=== PATIENT | male | born 1960 | race Two or more races ===

== ENCOUNTER 2018-03-06 04:17 | Emergency (ER) | payer MEDICAID ==
--- NOTE | 2018-03-06 04:25 | EDPHY ---
H & P Stated Complaint: epigastric pain since 2199 Source: Patient - Personal History Current Tetanus/Diphtheria Vaccine: Yes - Medical/Surgical History Hx Asthma: Yes Hx Chronic Respiratory Disease: No Hx Diabetes: Yes Hx Cardiac Disease: No Hx Renal Disease: No Hx Cirrhosis: No Hx Alcoholism: No Hx HIV/AIDS: No Hx Splenectomy or Spleen Trauma: No Other PMH: DM, HTN, asthma,. back sx - Social History Smoking Status: Former smoker Time Seen by Provider: 03/06/18 04:24 HPI/ROS: HPI CHIEF COMPLAINT: Abdominal pain HISTORY OF PRESENT ILLNESS: Patient is a 58-year-old male, he has a history of diabetes, hypertension, presents emergency room with upper abdominal pain since around 10:00 p.m. Last night. States has been rather excruciating throughout the night. The main pain is in the right upper quadrant. Sharp stabbing rather constant. With associated nausea. He did have 1 episode of nonbilious nonbloody vomiting. Denies diarrhea. Denies chills. Denies fever. Denies lower abdominal pain main complaint of pain it 8/10 right upper quadrant. No back pain, denies chest pain or shortness of breath. Past Medical History: Hypertension, diabetes Past Surgical History: Vagotomy Social History: Denies daily use of drugs alcohol tobacco. Family History: Noncontributory ROS REVIEW OF SYSTEMS: A comprehensive 10 point review of systems is otherwise negative aside from elements mentioned in the history of present illness. Exam Constitutional appears well nontoxic triage nursing summary reviewed, vital signs reviewed, awake/alert. Eyes normal conjunctivae and sclera, EOMI, PERRLA. HENT normal inspection, atraumatic, moist mucus membranes, no epistaxis, neck supple/ no meningismus, no raccoon eyes. Respiratory clear to auscultation bilaterally, normal breath sounds, no respiratory distress, no wheezing. Cardiovascular rate normal, regular rhythm, no murmur, no edema, distal pulses normal. Gastrointestinal mild tender palpation epigastric and right upper quadrant, reproducible on exam, no peritoneal signs, no rebound, no guarding, normal bowel sounds, no distension, no pulsatile mass. Genitourinary no CVA tenderness. Musculoskeletal no midline vertebral tenderness, full range of motion, no calf swelling, no tenderness of extremities, no meningismus, good pulses, neurovascularly intact. Skin pink, warm, & dry, no rash, skin atraumatic. Neurologic awake, alert and oriented x 3, AAOx3, moves all 4 extremities equally, motor intact, sensory intact, CN II-XII intact, normal cerebellar, normal vision, normal speech. Psychiatric normal mood/affect. Heme/Lymph/Immune no lymphadenopathy. Differential diagnosis includes but is not limited to and in no particular order : Bowel obstruction, appendicitis, gallbladder disease, diverticulitis, colitis , enteritis, perforated viscus, gastritis, GERD, esophagitis, urinary tract infection, pyelonephritis, kidney stones Medical Decision Making: Plan for this patient IV establishment IV fluid bolus , IV Dilaudid for pain control, IV Zofran for nausea, abdominal labs, ultrasound to rule out gallbladder disease. Re-evaluation: 0537: Ultrasound of the gallbladder called to me by Dr. Hermosillo. This shows CBD dilatation a 7to8 mm. Gallbladder wall is slightly thickened at 3.5 mm. Additionally when the patient is in the decubitus position there is a gallstone seen in the gallbladder neck. It is unclear if this is a mobile or not. EKG interpretation by me on record in [employer] system. Impression time of EKG 5:23 a.m., sinus rhythm rate of 84, no ST elevation no ST depression no significant T-wave abnormalities. Nonischemic EKG. 0559: Spoke with Dr. Jaimes, general surgery. Recommends patient gets admitted to Medicine. Dr. Davis will see and evaluate this patient for possible gallbladder disease. Plan will be for admission to the hospital for further evaluation of his right upper quadrant abdominal pain that is most likely due to gallbladder disease with gallstones. Surgery to see and evaluate. Will admit to Medicine due to comorbidities. NPO. IV Invanz has been ordered. Patient has been updated and agrees for plan. Spoke with Dr. Haynes agrees to admit. (Reji Melendez) Constitutional: Initial Vital Signs Temperature (C) 37.1 C 03/06/18 04:18 Heart Rate 94 03/06/18 04:18 Respiratory Rate 20 03/06/18 04:18 Blood Pressure 109/81 H 03/06/18 04:18 O2 Sat (%) 93 03/06/18 04:18 O2 Delivery Mode Room Air O2 (L/minute) 2 Allergies/Adverse Reactions: Penicillins Allergy (Verified 03/06/18 04:24) Sulfa (Sulfonamide Antibiotics) Allergy (Verified 03/06/18 04:24) Home Medications: Medication Instructions Recorded Lisinopril/Hydrochlorothiazide 03/06/18 Metformin HCl 03/06/18 Medical Decision Making Other Provider: [facility] patient has been seen in the emergency department by Dr. Davis, general surgery. The patient is currently pain-free. He is without complaint. He is not interested having gallbladder surgery today. He prefer to have this done as an outpatient. Patient is tolerating p.o.. Plan will be to discharge with outpatient follow-up with Dr. Davis for elective cholecystectomy. (Gómez Valverde ) - Data Points Laboratory Results: Laboratory Results 03/06/18 04:44 03/06/18 04:44 Medications Given: Discontinued Medications Ertapenem (Invanz) 1 gm IM EDNOW ONE PRN Reason: Protocol Stop: 03/06/18 06:00 Last Admin: 03/06/18 06:20 Dose: 1 gm Hydromorphone HCl (Dilaudid) 0.5 mg IVP EDNOW ONE Stop: 03/06/18 04:37 Last Admin: 03/06/18 04:57 Dose: 0.5 mg Sodium Chloride (Ns) 1,000 mls @ 0 mls/hr IV EDNOW ONE; Wide Open PRN Reason: Protocol Stop: 03/06/18 04:37 Last Admin: 03/06/18 04:56 Dose: 1,000 mls Ondansetron HCl (Zofran) 4 mg IVP EDNOW ONE Stop: 03/06/18 04:37 Last Admin: 03/06/18 04:57 Dose: 4 mg Departure - Departure Disposition: [facility] Inpatient Acute Clinical Impression: Biliary colic Condition: Good Instructions: Biliary Colic (ED), Low Fat Diet (ED) Additional Instructions: Follow up with Dr. Davis in his office in the next 2 weeks for further evaluation. Return to the emergency department for uncontrolled pain, uncontrolled nausea vomiting, fevers or chills, or any other concerns. Referrals: Caitlin Dickey MD [Primary Care Provider] - As per Instructions Ace Davis MD [Medical Doctor] - As per Instructions
[2018-03-06] MEDS ORDERED: ONDANSETRON 4 MG/2 ML VIAL IVP ONE (04:36)
[2018-03-06] MEDS ORDERED: NS 1,000 ML IV ONE (04:36)
[2018-03-06] MEDS ORDERED: HYDROmorphONE/DILAUDID 2 MG/ML INJ IVP ONE (04:36)
[2018-03-06 05:08] LABS: INR 0.92 (0.83-1.16); PROTIME(PATIENT) 12.6 SEC (12.0-15.0)
--- NOTE | 2018-03-06 05:24 | CPEKG ---
Heart Rate: 84 RR Interval: 714 P-R Interval: 196 QRSD Interval: 92 QT Interval: 372 QTC Interval: 440 P Columbia: 56 QRS Columbia: 23 T Wave Columbia: 59 EKG Severity - OTHERWISE NORMAL ECG - EKG Impression: SINUS RHYTHM EKG Impression: LOW VOLTAGE IN FRONTAL LEADS Electronically Signed By: Alireza Chahal 07-Mar-2018 19:47:17
[2018-03-06 05:28] LABS: PLATELET COUNT 256 10^3/uL (150-400)
[2018-03-06] MEDS ORDERED: ERTAPENEM 1 GM VIAL IM ONE (05:59)
[2018-03-06] MEDS ORDERED: PROMETHAZINE HCL 25 MG/ML INJ IVP PRN (07:22)
[2018-03-06] MEDS ORDERED: HYDROCODONE/APAP 5/325 TAB PO PRN (07:22)
[2018-03-06] MEDS ORDERED: ACETAMINOPHEN 325 MG TAB PO PRN (07:22)
[2018-03-06] MEDS ORDERED: ONDANSETRON 4 MG/2 ML VIAL IVP PRN (07:22)
[2018-03-06] MEDS ORDERED: HYDROmorphONE/DILAUDID 1 MG/ML INJ IVP PRN (07:22)
[2018-03-06] MEDS ORDERED: NS 1,000 ML IV SCH (07:30)
[2018-03-06 08:00] VITALS: BP 108/58
--- NOTE | 2018-03-06 08:12 | GCON ---
[f rep st] CONSULTATION DATE OF CONSULTATION: 03/06/2018 REASON FOR ADMISSION: Right upper quadrant pain. REQUESTING PHYSICIAN: Reji Melendez MD . HISTORY OF PRESENT ILLNESS: 58-year-old male presented to the emergency room earlier this morning with right upper quadrant abdominal pain. He reports one quasi similar episode many months prior. He denies associated fevers or chills. He denies current nausea or vomiting. He denies history of dark urine , acholic stools, or jaundice. He did have a remote history of a vagotomy many years ago. His ED workup including right upper quadrant ultrasonography showed cholelithiasis. Patient was given IV analgesics. Upon my visit, the patient reports that he is currently pain free. He is currently without nausea. He is currently hungry. 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 PAST MEDICAL HISTORY: Diabetes, hypertension, asthma. PAST SURGICAL HISTORY: Open vagotomy, lumbar diskectomy, left pinky finger fracture repair. ALLERGIES: Penicillin, sulfa. MEDICATIONS: Lisinopril/hydrochlorothiazide, metformin. SOCIAL HISTORY: No alcohol. No tobacco. 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 REVIEW OF SYSTEMS: Unremarkable 12-point review. PHYSICAL EXAMINATION: Temperature 37, blood pressure 110/80, heart rate 94, respiration 20. The patient is alert, appropriate, comfortable at present time. Anicteric. No cervical or supraclavicular lymphadenopathy. Heart regular without murmurs. Lungs clear bilaterally. Abdomen is soft, nondistended. Well-healed midline laparotomy without hernias. No right upper quadrant tenderness. No rebound. No guarding. No masses. Extremities without edema. Neurologically alert and appropriate. Skin without rashes. LABORATORY DATA: White count 9.9, hemoglobin 12, platelets 260. INR 1.0. Electrolytes: Sodium 141, potassium 3.4, chloride 95, CO2 30, BUN 20, creatinine 0.9, glucose 164, alkaline phosphatase 92, AST 53, total bilirubin 0.6. Urinalysis unremarkable. Right upper quadrant ultrasound images were directly reviewed on PACS. Cholelithiasis with minimal gallbladder wall thickening without free fluid, common bile duct 7 mm. IMPRESSION: Biliary colic. Symptoms are currently resolved. The patient strongly desires to avoid surgery at this time given his upcoming work arrangements. We discussed the pathophysiology of gallbladder disease and recommendations to proceed with elective laparoscopic cholecystectomy as he is currently pain free. This can safely be recommended in the outpatient setting. We did discuss the possibility for recurrent attacks and need for sooner intervention if warranted. Care plan was discussed with the hospitalist and the emergency room physician documentation spec. Will plan to followup in office. /[id number]/MODL MTDD
== END 2018-03-06 08:25 | disposition home or self-care (01) ==
LOC: UNDOADMOB 06:12
DX: K80.50 Calculus of bile duct without cholangitis or cholecystitis without obstruction (principal)
CPT/HCPCS: 96374; J1170; J1335; J2405

== ENCOUNTER 2018-03-23 11:40 | Day surgery (SDC) | payer MEDICAID ==
[2018-03-23] MEDS ORDERED: LR 1,000 ML IV ONE (12:03)
--- NOTE | 2018-03-23 13:02 | PDHPUP ---
History & Physical Update H&P update statement: This history and physical update is based on an assessment of the patient which was completed after admission or registration (within 24 hours), but prior to the surgery/procedure. H&P update: H&P reviewed & patient examined, no change in patient's condition since H&P completed
--- NOTE | 2018-03-23 13:03 | POSTOPPROG ---
<Meeta Syed - Last Filed: 03/23/18 13:02> Post Op Note Date of Operation: 03/23/18 Surgeon: Ace Davis Molding Machine Operator: Meeta Syed PA-C Pre-op Diagnosis: Cholelithiasis Post-op Diagnosis: Cholethiasis Procedure: Laparoscopic cholecystectomy Inf/Abcess present in the surg proc area at time of surgery?: No EBL: Minimal Complications: no immediate <Ace Davis Filed: 03/23/18 15:26> Post Op Note Date of Operation: 03/23/18 Surgeon: Ace Davis Anesthesiologist: Jagjit Lo Post-op Diagnosis: Cholelithiasis Complications: no immediate Specimen(s): gallbladder
[2018-03-23] MEDS ORDERED: BUPIVACAINE 0.5% 30 ML SDV ONE (13:28)
[2018-03-23] MEDS ORDERED: EPINEPHrine 1 MG/ML INJ ONE (13:42)
--- NOTE | 2018-03-23 14:15 | PDANEPAE ---
ANE History of Present Illness cholelithiasis, here for lap siddharth ANE Past Medical History - Cardiovascular History Hx Hypertension: Yes Hx Arrhythmias: No Hx Chest Pain: No Hx Coronary Artery / Peripheral Vascular Disease: No Hx CHF / Valvular Disease: No Hx Palpitations: No - Pulmonary History Hx COPD: No Hx Asthma/Reactive Airway Disease: No Hx Recent Upper Respiratory Infection: No Hx Oxygen in Use at Home: No Hx Sleep Apnea: No Sleep Apnea Screening Result - Last Documented: Negative Pulmonary History Comment: HX OF MILD PERSISTENT ASTHMA-ADVAIR USE SEVERAL MONTHS AGO. - Neurologic History Hx Cerebrovascular Accident: No Hx Seizures: No Hx Dementia: No Neurologic History Comment: HX OF H/A -CHRONIC SMALL VESSEL ISCHEMIA. - Endocrine History Hx Diabetes: Yes Endocrine History Comment: NIDDM-AIC 7.2 - Renal History Hx Renal Disorders: No - Liver History Hx Hepatic Disorders: No - Neurological & Psychiatric Hx Hx Neurological and Psychiatric Disorders: No - Cancer History Hx Cancer: No - Congenital Disorder History Hx Congenital Disorders: No - GI History Hx Gastrointestinal Disorders: Yes Gastrointestinal History Comment: ACID REFLUX -ON RX - Other Health History Other Health History: GALLBLADDER CALCULUS;. GLAUCOMA-ACUTE ANGLE LASER SX; - Chronic Pain History Chronic Pain: No - Surgical History Prior Surgeries: CATARACT EXTRACTION W/IOL-BILAT;. LUMBAR DISCECTOMY L5;. VAGOTOMY 1982 ANE Review of Systems Review of Systems: - Exercise capacity METS (RN): 4 METS ANE Patient History - Allergies Allergies/Adverse Reactions: Penicillins Allergy (Verified 03/22/18 15:11) Rash Sulfa (Sulfonamide Antibiotics) Allergy (Verified 03/22/18 15:11) Rash - Home Medications Home Medications: Lisinopril/Hydrochlorothiazide 03/06/18 [Last Taken 03/23/18] Metformin HCl 03/06/18 [Last Taken 03/23/18] Amlodipine Besylate 03/22/18 [Last Taken 03/23/18] Atorvastatin Calcium 03/22/18 [Last Taken 03/23/18] Carvedilol 03/22/18 [Last Taken 03/23/18] Tradjenta 03/22/18 [Last Taken 03/23/18] - NPO status NPO Status: no food or drink >8 hours NPO Since - Liquids (Date): 03/23/18 NPO Since - Liquids (Time): 10:00 NPO Since - Solids (Date): 03/23/18 NPO Since - Solids (Time): 00:00 - Anes Hx Anes Hx: no prior problems - Smoking Hx Smoking Status: Former smoker - Alcohol Use Alcohol Use: None - Family Anes Hx Family Anes Hx: none ANE Labs/Vital Signs - Vital Signs Blood Pressure: 130/75 Heart Rate: 84 Respiratory Rate: 14 O2 Sat (%): 98 Height: 167.64 cm Weight: 95.254 kg ANE Physical Exam - Airway Neck exam: decreased ROM Mallampati Score: Class 1 Mouth exam: normal dental/mouth exam - Pulmonary Pulmonary: no respiratory distress, clear to auscultation - Cardiovascular Cardiovascular: regular rate and rhythym, no murmur, rub, or gallop - ASA Status ASA Status: III ANE Anesthesia Plan Anesthesia Plan: general endotracheal anesthesia
[2018-03-23] MEDS ORDERED: MIDAZOLAM 2 MG/2 ML VIAL IVP ONE (14:16)
[2018-03-23] MEDS ORDERED: MIDAZOLAM 2 MG/2 ML VIAL ONE (14:17)
[2018-03-23] MEDS ORDERED: fentaNYL 100 MCG/2 ML INJ ONE ×3 (14:21→16:03)
[2018-03-23] MEDS ORDERED: PROPOFOL 200 MG/20 ML VIAL ONE ×2 (14:21→15:24)
[2018-03-23] MEDS ORDERED: LIDOCAINE 2% 5 ML SDV ONE (14:23)
[2018-03-23] MEDS ORDERED: ROCURONIUM 50 MG/5 ML VIAL ONE (14:24)
[2018-03-23] MEDS ORDERED: NALOXONE HCL 0.4 MG/ML INJ IVP PRN (15:42)
[2018-03-23] MEDS ORDERED: ALBUTEROL 3 ML DEYVIAL IH PRN (15:42)
[2018-03-23] MEDS ORDERED: HYDROCODONE/APAP 5/325 TAB PO PRN (15:42)
[2018-03-23] MEDS ORDERED: PROMETHAZINE HCL 25 MG/ML INJ IVP PRN (15:42)
[2018-03-23] MEDS ORDERED: ONDANSETRON 4 MG/2 ML VIAL IVP PRN (15:42)
[2018-03-23] MEDS ORDERED: ACETAMINOPHEN 500 MG TAB PO PRN (15:42)
[2018-03-23] MEDS ORDERED: oxyCODONE IR 5 MG TAB PO PRN (15:42)
--- NOTE | 2018-03-23 15:42 | POSTANESTH ---
Post Anesthetic Evaluation Cardiovascular Status: Normal, Stable, Similar to Pre-Op Cond Respiratory Status: Normal, Stable, Similar to Pre-op Cond. Level of Consciousness/Mental Status: Moderately Sleepy Pain Control: Adequate, Prn Tx Ordered Nausea/Vomiting Control: Adequate, Prn Tx Ordered Complications Possibly Related to Anesthesia: None Noted
[2018-03-23] MEDS: fentaNYL 100 MCG/2 ML INJ IVP PRN ×2 (16:04→16:11)
[2018-03-23] MEDS ORDERED: HYDROCODONE/APAP 5/325 TAB ONE (16:30)
--- NOTE | 2018-03-23 16:35 | GOP ---
[f rep st] OPERATIVE REPORT DATE OF OPERATION: 03/23/2018 SURGEON: Ace Davis MD COVERING MACHINE OPERATOR: Meeta Syed PA-C. ANESTHESIA: General. ANESTHESIOLOGIST: Al Jones MD. PREOPERATIVE DIAGNOSIS: Biliary colic. POSTOPERATIVE DIAGNOSIS: Biliary colic. PROCEDURE PERFORMED: Laparoscopic cholecystectomy. FINDINGS: See below. INDICATIONS: 58-year-old male seen in the emergency room a few weeks prior with an episode of a biliary colic. He is taken to the operating today for an elective laparoscopic cholecystectomy. Risks and benefits were explained of bleeding, infection, open conversion, bile duct injury, retained stone, potential for postoperative ERCP. All questions were answered. He desires to proceed. A medical surgical tech is standard and necessary and customary for the safe performance of this procedure. DESCRIPTION OF PROCEDURE: After general anesthesia was induced, the abdomen was preinjected with 0.5% Marcaine with epinephrine. A vertical infraumbilical cutdown was created. A 10 mm trocar was placed under direct visualization. Three additional 5 mm upper abdominal ports were inserted. Multiple midline omental adhesions were lysed from the patient's prior vagotomy procedure many years prior. The gallbladder was then retracted cephalad. Extensive omental adhesions were present from prior surgical intervention as well. These were all bluntly lysed away, disclosing the fundus of the gallbladder. The cystic duct and artery were circumferentially encompassed, confirming the critical view of safety. The duct was small in caliber. The duct was multiply clipped and divided with the ultrasonic dissector as was the artery. The gallbladder was peeled from the liver bed fossa and brought through the umbilical port site intact using EndoCatch pouch. Satisfactory hemostasis was assured. Trocars were removed under direct visualization. The infraumbilical midline fascia was closed with a running Vicryl suture. The wounds were closed with Monocryl suture followed by Dermabond. The patient was taken to recovery uneventfully. /[id number]/MODL MTDD
[2018-03-23 17:50] VITALS: BP 128/73
== END 2018-03-23 17:50 | disposition home or self-care (01) ==
LOC: FSGY 11:40
PROVIDERS: ATTEND Surgery
PROC: 0FT44ZZ Resection of Gallbladder, Percutaneous Endoscopic Approach (ICD-10-PCS; principal; 2018-03-23 13:00)
DX: K80.20 Calculus of gallbladder without cholecystitis without obstruction (principal); I10 Essential (primary) hypertension; J45.30 Mild persistent asthma, uncomplicated; E78.00 Pure hypercholesterolemia, unspecified; E11.9 Type 2 diabetes mellitus without complications; K21.9 Gastro-esophageal reflux disease without esophagitis; H40.9 Unspecified glaucoma; Z79.82 Long term (current) use of aspirin; Z88.0 Allergy status to penicillin; Z88.2 Allergy status to sulfonamides
CPT/HCPCS: J0171; J2250; J2704; J3010

== ENCOUNTER 2018-03-26 04:05 | Inpatient (IN) | payer MEDICAID ==
[2018-03-26] MEDS ORDERED: NS 1,000 ML IV ONE ×3 (04:10→06:11)
--- NOTE | 2018-03-26 04:18 | EDPHY ---
H & P Time Seen by Provider: 03/26/18 04:12 HPI/ROS: HPI CHIEF COMPLAINT: Chest pain and shortness of breath. HISTORY OF PRESENT ILLNESS: Patient is a 58-year-old male, who I am familiar with his eye initially admitted him for gallbladder disease he had an elective cholecystectomy on 03/23, he presents emergency room as he woke up suddenly at 3 :00 a.m. With shortness of breath and chest pain. He states the main thing that woke him up was some shortness of breath he developed some sharp chest pain left side of his chest. It is been constant since 3:00 a.m. It is now 4: 15 a.m.. EMS arrived to evaluate him and he had oxygen saturations in the 86% on RA, and noted to be tachycardic in the 140s. He is brought to the emergency room he did require 4 L nasal cannula which brought his oxygen level up to 91%. He now presents emergency ring appearing ill, tachycardic, and hypoxic. He is complaining of shortness of breath and chest pain. Past Medical History: Hypertension, asthma, diabetes Past Surgical History: Gallbladder disease, with recent cholecystectomy Social History: Denies drugs alcohol tobacco. Family History: Noncontributory ROS REVIEW OF SYSTEMS: A comprehensive 10 point review of systems is otherwise negative aside from elements mentioned in the history of present illness. Exam Constitutional appears unwell, tachycardic and hypoxic upon arrival triage nursing summary reviewed, vital signs reviewed, awake/alert. Eyes normal conjunctivae and sclera, EOMI, PERRLA. HENT normal inspection, atraumatic, moist mucus membranes, no epistaxis, neck supple/ no meningismus, no raccoon eyes. Respiratory clear to auscultation bilaterally, normal breath sounds, no respiratory distress, no wheezing. Cardiovascular tachycardia, regular rhythm, no murmur, no edema, distal pulses normal. Gastrointestinal soft, non-tender, no rebound, no guarding, normal bowel sounds, no distension, no pulsatile mass. Genitourinary no CVA tenderness. Musculoskeletal no midline vertebral tenderness, full range of motion, no calf swelling, no tenderness of extremities, no meningismus, good pulses, neurovascularly intact. Skin clammy, no rash, skin atraumatic. Neurologic awake, alert and oriented x 3, AAOx3, moves all 4 extremities equally, motor intact, sensory intact, CN II-XII intact, normal cerebellar, normal vision, normal speech. Psychiatric normal mood/affect. Heme/Lymph/Immune no lymphadenopathy. Differential Diagnosis: Includes but is not limited to in a particular order sepsis, bacteremia, pneumonia, pneumothorax, pulmonary embolism Medical Decision Making: Plan for this patient who is noted be tachycardic and hypoxic upon arrival after surgery will plan for aggressive resuscitation be placed on supplemental oxygen full cardiac cath lab radiology technologist obtain EKG to rule out acute coronary syndrome the comma chest x-ray, IV fluids, blood cultures, check lactic acid, low threshold for CT angiogram of the chest rule out PE. Re-evaluation: EKG interpretation by me on record in [employer] system. Impression: Time of EKG 4:15 a.m., sinus tachycardia waited 141 T-wave abnormality lead 1 in aVL with some slight ST depression no ST elevation. ED x-ray chest one view: Poor inspiratory effort. Cardiomegaly present. Otherwise appreciate acute pneumothorax or infiltrate. D-dimer noted to be positive. Creatinine is okay. Will proceed with CT angiogram of the chest. Rule out PE. 5:05 a.m. Patient back from CT, heart rate 123, blood pressure 99/58. Pulse ox 91% on [address] scan angiogram of the chest with IV contrast for pulmonary embolism in the setting of D-dimer that is positive in recent surgery he does not have any evidence of acute pulmonary embolism this was called to me by Dr. Anthony Goodson. There is right lower lobe atelectasis, and elevated right hemidiaphragm, most likely compressive atelectasis, additionally pleural effusion This pleural effusion atelectasis and elevated right hemidiaphragm may be the cause of his hypoxia. Clinically here in the emergency room he appears dry and on exam. Received a 2nd L fluid. I have ordered him IV Levaquin. Blood cultures have already been sent. His temperature is now 37.8. I do have concern of possible developing pneumonia post surgery. Patient be admitted to the hospitalist service for tachycardia, hypoxia, possible right lower lobe pneumonia. 0529: Spoke with Dr. Husain he agrees to admit the patient. The patient is getting a 2nd L fluid. IV Levaquin has been ordered. Will treat for possible early right lower lobe pneumonia compressive atelectasis, pleural effusion, obesity hypoventilation syndrome and possibly hypoventilation due to narcotics. 0532: Patient re-evaluated this time he is having chills and rigors in ER. I have ordered him 800 mg of Motrin. Blood cultures are pending. Lactic acid pending. 2nd L fluid. 0618: Hospitalist at bedside evaluate the patient. The patient is complaining of worsening abdominal pain. Additionally it is noted he is having rigors and chills, additionally noted is temperature is increasing to 39 degrees. Given increasing complaint of abdominal pain will proceed with CT scan abdomen pelvis with IV contrast to further delineate for acute febrile illness with worsening abdominal pain with recent gallbladder surgery. Plan will be for 3rd L fluid. Plan will be for admission for sepsis. Lactic acid was noted to be at 2. 0648: CT ABD Pelvis: With IV contrast, called to me by Dr. Anthony Goodson, shows a few dots of air in the anterior gallbladder fossa. Otherwise no significant acute inflammatory process seen on the CT. Source: Patient, EMS - Medical/Surgical History Hx Asthma: Yes Hx Chronic Respiratory Disease: No Hx Diabetes: Yes Hx Cardiac Disease: No Hx Renal Disease: No Hx Cirrhosis: No Hx Alcoholism: No Hx HIV/AIDS: No Hx Splenectomy or Spleen Trauma: No Other PMH: DM, HTN, asthma,. back sx - Social History Smoking Status: Former smoker Constitutional: Initial Vital Signs O2 Sat (%) 91 L 03/26/18 04:10 O2 Delivery Mode Room Air O2 (L/minute) 4 Allergies/Adverse Reactions: Penicillins Allergy (Verified 03/26/18 04:15) Rash Sulfa (Sulfonamide Antibiotics) Allergy (Verified 03/26/18 04:15) Rash Home Medications: Medication Instructions Recorded metFORMIN HCL [Glucophage 1000 mg] 2,000 mg PO HS #0 03/06/18 Atorvastatin Calcium [Lipitor 20 20 mg PO DAILY #0 03/22/18 mg (*)] Carvedilol [Coreg (*)] 12.5 mg PO BID #0 03/22/18 Linagliptin [Tradjenta] 5 mg PO DAILY #0 03/22/18 amLODIPine BESYLATE [Norvasc 10 mg 5 - 10 mg PO DAILY #0 03/22/18 (*)] Cyanocobalamin [Vitamin B12 (*)] 1,000 mcg PO Q3D 03/26/18 Hydrocodone/Acetaminophen [[place] 1 - 2 tab PO Q4-6PRN PRN 03/26/18 5/325 (*)] Ibuprofen [Motrin (*)] 200 - 800 mg PO TID PRN 03/26/18 Omeprazole 20 mg PO HS 03/26/18 Medical Decision Making - Data Points Laboratory Results: Laboratory Results 03/26/18 04:08 03/26/18 04:08 Microbiology Results: MICROBIOLOGY 03/26/18 04:27 Blood Blood Culture - Preliminary Escherichia Coli 03/26/18 04:27 Blood Blood Panel (PCR) - Final Escherichia Coli 03/26/18 04:19 Blood Blood Culture - Preliminary Gram Neg Mehdi Lactose Staff 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/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 Medications Given: Acetaminophen (Tylenol) 650 mg PO Q4HRS PRN PRN Reason: Pain, Mild/Fever, Can Take PO Stop: 09/22/18 05:31 Last Admin: 03/27/18 18:10 Dose: 650 mg Atorvastatin Calcium (Lipitor) 20 mg PO DAILY KAELYN Stop: 09/23/18 08:59 Last Admin: 03/27/18 11:50 Dose: 20 mg Ertapenem 1 gm/ Sodium (Chloride) 100 mls @ 200 mls/hr IV DAILY KAELYN PRN Reason: Protocol Stop: 04/25/18 09:29 Last Admin: 03/27/18 11:50 Dose: 100 mls Norepinephrine 4 mg/ Dextrose 500 mls @ 0 mls/hr IV CONT KAELYN; Per Protocol PRN Reason: Protocol Stop: 09/22/18 18:29 Last Admin: 03/26/18 18:34 Dose: 500 mls Insulin Human Lispro (Humalog Lispro) 0 unit SC TIDMEAL KAELYN PRN Reason: Protocol Stop: 09/22/18 07:59 Last Admin: 03/27/18 17:32 Dose: 2 units Ondansetron HCl (Zofran) 4 mg IVP Q4HRS PRN PRN Reason: Nausea/Vomiting, Can't Take PO Stop: 09/22/18 05:31 Last Admin: 03/26/18 20:14 Dose: 4 mg Pantoprazole Sodium (Protonix) 40 mg PO HS KAELYN Stop: 09/23/18 20:59 Last Admin: 03/27/18 20:34 Dose: 40 mg Discontinued Medications Acetaminophen (Tylenol) 650 mg PO EDNOW ONE Stop: 03/26/18 07:00 Last Admin: 03/26/18 07:11 Dose: 650 mg Enoxaparin Sodium (Lovenox) 100 mg SC BID KAELYN Stop: 09/23/18 09:59 Last Admin: 03/27/18 11:50 Dose: 100 mg Furosemide (Lasix Injection) 20 mg IVP ONCE ONE Stop: 03/27/18 12:16 Last Admin: 03/27/18 15:58 Dose: Not Given Furosemide (Lasix Injection) 20 mg IVP ONCE ONE Stop: 03/27/18 16:01 Last Admin: 03/27/18 16:39 Dose: Not Given Sodium Chloride (Ns) 1,000 mls @ 0 mls/hr IV EDNOW ONE; Wide Open PRN Reason: Protocol Stop: 03/26/18 04:11 Last Admin: 03/26/18 04:25 Dose: 1,000 mls Levofloxacin/Dextrose (Levaquin 750 Mg (Premix)) 150 mls @ 100 mls/hr IV EDNOW ONE PRN Reason: Protocol Stop: 03/26/18 06:45 Last Admin: 03/26/18 05:30 Dose: 150 mls Sodium Chloride (Ns) 1,000 mls @ 0 mls/hr IV ONCE ONE PRN Reason: Wide Open Stop: 03/26/18 05:19 Last Admin: 03/26/18 05:45 Dose: 1,000 mls Sodium Chloride (Ns) 1,000 mls @ 0 mls/hr IV ONCE ONE PRN Reason: Wide Open Stop: 03/26/18 06:12 Last Admin: 03/26/18 06:30 Dose: 1,000 mls Sodium Chloride (Ns) 500 mls @ 1,500 mls/hr IV ONCE ONE Stop: 03/26/18 09:36 Last Admin: 03/26/18 09:30 Dose: 500 mls Norepinephrine 4 mg/ Sodium (Chloride) 500 mls @ 0 mls/hr IV CONT KAELYN; Per Protocol PRN Reason: Protocol Stop: 09/22/18 10:29 Last Admin: 03/26/18 12:06 Dose: 500 mls Sodium Chloride (Ns) 500 mls @ 0 mls/hr IV ONCE ONE PRN Reason: As Directed Stop: 03/26/18 11:01 Last Admin: 03/26/18 10:10 Dose: 500 mls Vasopressin 25 unit/ Sodium (Chloride) 251.25 mls @ 24 mls/hr IV CONT KAELYN Stop: 09/22/18 14:29 Last Admin: 03/26/18 14:27 Dose: 251.25 mls Amiodarone HCl (Amiodarone Hcl) 100 mls @ 600 mls/hr IV ONCE ONE Stop: 03/27/18 10:09 Last Admin: 03/27/18 12:26 Dose: Not Given Amiodarone HCl (Amiodarone Hcl) 200 mls @ 33.333 mls/hr IV ONCE ONE PRN Reason: Protocol Stop: 03/27/18 15:59 Last Admin: 03/27/18 12:26 Dose: Not Given Amiodarone HCl 540 mg/ (Dextrose) 300 mls @ 16.667 mls/hr IV ONCE ONE PRN Reason: Protocol Stop: 03/28/18 03:59 Last Admin: 03/27/18 14:26 Dose: Not Given Potassium Chloride (Potassium Cl 10 Meq (Premix)) 50 mls @ 100 mls/hr IV Q30M [facility] Stop: 03/27/18 15:44 Last Admin: 03/27/18 16:38 Dose: 50 mls Ibuprofen (Motrin) 800 mg PO EDNOW ONE Stop: 03/26/18 05:33 Last Admin: 03/26/18 05:39 Dose: 800 mg Potassium Chloride (Klor-Con) 60 meq PO ONCE ONE Stop: 03/27/18 05:03 Last Admin: 03/27/18 05:17 Dose: 60 meq Potassium Chloride (Klor-Con) 20 meq PO ONCE ONE PRN Reason: Protocol Stop: 03/27/18 19:37 Last Admin: 03/27/18 20:34 Dose: 20 meq Departure - Departure Disposition: [facility] Acute Clinical Impression: Tachycardia, Hypoxia Pneumonia Qualifiers: Pneumonia type: due to unspecified organism Laterality: right Lung location: lower lobe of lung Qualified Code(s): J18.1 - Lobar pneumonia, unspecified organism Fever Qualifiers: Fever type: unspecified Qualified Code(s): R50.9 - Fever, unspecified Condition: Critical
[2018-03-26] MEDS ORDERED: IOPAMIDOL (ISOVUE 370) 100 ML BTL IV ONE (04:21)
[2018-03-26 04:24] LABS: PLATELET COUNT 359 10^3/uL (150-400)
[2018-03-26 04:28] LABS: PROTIME(PATIENT) 13.4 SEC (12.0-15.0)
[2018-03-26 04:31] LABS: CREATINE KINASE 52 IU/L (0-224)
--- NOTE | 2018-03-26 05:08 | CPEKG ---
Heart Rate: 141 RR Interval: 426 P-R Interval: 164 QRSD Interval: 88 QT Interval: 256 QTC Interval: 392 P Denton: 22 QRS [place]enton: 9 T Wave [place]: 137 EKG Severity - ABNORMAL ECG - EKG Impression: SINUS TACHYCARDIA EKG Impression: BORDERLINE R WAVE PROGRESSION, ANTERIOR LEADS EKG Impression: NONSPECIFIC T ABNORMALITIES, LATERAL LEADS Electronically Signed By: Reji Melendez 26-Mar-2018 07:18:27
[2018-03-26] MEDS ORDERED: IBUPROFEN 800 MG TAB PO ONE (05:32)
[2018-03-26] MEDS ORDERED: ONDANSETRON DISINTEGRATING 4 MG TAB PO PRN (05:32)
--- NOTE | 2018-03-26 06:07 | PDGENHP ---
History and Physical - Chief Complaint Abdominal pain - History of Present Illness 58 yo M w/ NIDDM and HTN presents with hypoxia, abdominal pain, and fever a few days after cholecystectomy. He was taken for an elective, laparoscopic cholecystectomy on 03/[address] Davis. Yesterday he began to notice diffuse abdominal pain and chills. Upon arrival in the ED he was noted to be tachycardic and hypoxic. He developed a fever to 39.5 while in the ED and is displaying shaking chills during my evaluation. He is a very poor historian and has a difficult time elaborating on his symptoms. He specifically denies shortness of breath despite requiring 4 L/min O2 to maintain O2 sat >90%. History Information - Allergies/Home Medication List Allergies/Adverse Reactions: Penicillins Allergy (Verified 03/26/18 04:15) Rash Sulfa (Sulfonamide Antibiotics) Allergy (Verified 03/26/18 04:15) Rash Home Medications: Lisinopril/Hydrochlorothiazide 03/06/18 [Last Taken 03/23/18] Metformin HCl 03/06/18 [Last Taken 03/23/18] Amlodipine Besylate 03/22/18 [Last Taken 03/23/18] Atorvastatin Calcium 03/22/18 [Last Taken 03/23/18] Carvedilol 03/22/18 [Last Taken 03/23/18] Tradjenta 03/22/18 [Last Taken 03/23/18] I have personally reviewed and updated: family history, medical history - Past Medical History diabetes type 2, hypertension - Surgical History Reports: cholecystectomy - Family History Additional family history: Asked, denies - Social History Smoking Status: Former smoker Review of Systems Review of Systems: ROS: 10pt was reviewed & negative except for what was stated in HPI & below Physical Exam Physical Exam: Temp Pulse Resp BP Pulse Ox 39.5 C H 140 H 18 147/89 H 90 L 03/26/18 05:45 03/26/18 05:45 03/26/18 05:45 03/26/18 05:45 03/26/18 05:45 O2 (L/minute) 2 Constitutional: obese, uncomfortable Eyes: PERRL, EOMI Ears, Nose, Mouth, Throat: moist mucous membranes, no oral mucosal ulcers Cardiovascular: no murmur, rub, or gallop, tachycardia Respiratory: reduced air movement, other (Tachypnea) Gastrointestinal: distension, other (Surgical incisions appear well healing) Skin: warm, normal color Neurologic: AAOx3, CN II-XII Intact Psychiatric: interacting appropriately, anxious Lab Data & Imaging Review 03/26/18 04:08 03/26/18 04:08 WBC 6.36 10^3/uL (3.80-9.50) 03/26/18 04:08 RBC 4.69 10^6/uL (4.40-6.38) 03/26/18 04:08 Hgb 11.8 g/dL (13.7-17.5) L 03/26/18 04:08 Hct 37.5 % (40.0-51.0) L 03/26/18 04:08 MCV 80.0 fL (81.5-99.8) L 03/26/18 04:08 MCH 25.2 pg (27.9-34.1) L 03/26/18 04:08 MCHC 31.5 g/dL (32.4-36.7) L 03/26/18 04:08 RDW 18.5 % (11.5-15.2) H 03/26/18 04:08 Plt Count 359 10^3/uL (150-400) 03/26/18 04:08 MPV 11.5 fL (8.7-11.7) 03/26/18 04:08 Neut % (Auto) 57.7 % (39.3-74.2) 03/26/18 04:08 Lymph % (Auto) 38.7 % (15.0-45.0) 03/26/18 04:08 Door % (Auto) 0.8 % (4.5-13.0) L 03/26/18 04:08 Eos % (Auto) 1.7 % (0.6-7.6) 03/26/18 04:08 Baso % (Auto) 0.6 % (0.3-1.7) 03/26/18 04:08 Nucleat RBC Rel Count 0.0 % (0.0-0.2) 03/26/18 04:08 Absolute Neuts (auto) 3.67 10^3/uL (1.70-6.50) 03/26/18 04:08 Absolute Lymphs (auto) 2.46 10^3/uL (1.00-3.00) 03/26/18 04:08 Absolute Monos (auto) 0.05 10^3/uL (0.30-0.80) L 03/26/18 04:08 Absolute Eos (auto) 0.11 10^3/uL (0.03-0.40) 03/26/18 04:08 Absolute Basos (auto) 0.04 10^3/uL (0.02-0.10) 03/26/18 04:08 Absolute Nucleated RBC 0.00 10^3/uL (0-0.01) 03/26/18 04:08 Immature Gran % 0.5 % (0.0-1.1) 03/26/18 04:08 Immature Gran # 0.03 10^3/uL (0.00-0.10) 03/26/18 04:08 PT 13.4 SEC (12.0-15.0) 03/26/18 04:08 INR 1.00 (0.83-1.16) 03/26/18 04:08 APTT 22.6 SEC (23.0-38.0) L 03/26/18 04:08 D-Dimer 3.49 ug/mLFEU (0.00-0.50) H 03/26/18 04:08 VBG Lactic Acid 2.0 mmol/L (0.7-2.1) 03/26/18 05:36 Sodium 142 mEq/L (135-145) 03/26/18 04:08 Potassium 4.6 mEq/L (3.3-5.0) 03/26/18 04:08 Chloride 98 mEq/L (97-110) 03/26/18 04:08 Carbon Dioxide 19 mEq/l (22-31) L 03/26/18 04:08 Anion Gap 25 mEq/L (8-16) H 03/26/18 04:08 BUN 17 mg/dL (7-23) 03/26/18 04:08 Creatinine 1.3 mg/dL (0.7-1.3) 03/26/18 04:08 Estimated GFR 56 03/26/18 04:08 Glucose 150 mg/dL (70-100) H 03/26/18 04:08 Calcium 9.3 mg/dL (8.5-10.4) 03/26/18 04:08 Magnesium 1.7 mg/dL (1.6-2.3) 03/26/18 04:08 Total Bilirubin 0.7 mg/dL (0.1-1.4) 03/26/18 04:08 Conjugated Bilirubin 0.5 mg/dL (0.0-0.5) 03/26/18 04:08 Unconjugated Bilirubin 0.2 mg/dL (0.0-1.1) 03/26/18 04:08 AST 27 IU/L (17-59) 03/26/18 04:08 ALT 44 IU/L (21-72) 03/26/18 04:08 Alkaline Phosphatase 75 IU/L (38-126) 03/26/18 04:08 Creatine Kinase 52 IU/L (0-224) 03/26/18 04:08 CK-MB (CK-2) Fraction 0.57 ng/mL (0.00-3.19) 03/26/18 04:08 Troponin I < 0.012 ng/mL (0.000-0.034) 03/26/18 04:08 NT-Pro-B Natriuret Pep 212 pg/mL (0-125) H 03/26/18 04:08 Total Protein 7.1 g/dL (6.3-8.2) 03/26/18 04:08 Albumin 4.2 g/dL (3.5-5.0) 03/26/18 04:08 Lipase 66 IU/L (23-300) 03/26/18 04:08 Imaging Review: CTA Chest Prelim: No PE identified. (breathing artifact limits some assessment of the peripheral subsegmental branches). Elevated right HD with underlying hepatomegaly (steatosis), and tr right pl eff/ SSA RLL Small amt of free air and fluid anterior to GB fossa in subhepatic space. Results called to Dr. Melendez at 5:08 am. JAYJAY Visualized and Interpreted Chest x-ray results: Yes Chest X-Ray results: other (RLL effusion vs. infiltrate) Visualized and Interpreted EKG results: Yes EKG Interpretation: Positive for: other (Sinus tach, poor R wave progression) Assessment & Plan Assessment: 58 yo M w/ T2DM and HTN presents with sepsis 3 days after laparoscopic cholecystectomy. Plan: 1. Sepsis - HR 140, T 39.5, RR >20 (3/4 SIRS) upon my evaluation. SOFA score of 7, qSOFA of 2. Source is possibly pneumonia in RLL w/ coexisting effusion. However, noting complaints of abdominal pain and recent surgery, will also evaluate abdomen. - CT abdomen ordered for evaluation of intraabdominal infection - UA pending - S/p Levofloxacin for possible HAP, which I will continue; add Flagyl if intraabdominal infection detected - Blood cultures ordered - Continue aggressive IVF noting ongoing tachycardia - Discussed case with ED physician Dr. Shafer 2. NIDDM - Will manage BG with SSI while inpatient. 3. HTN - Hold home meds for now in setting of sepsis and monitor. Diet - NPO pending abdominal evaluation, regular if unremarkable Code - Full Ppx - SCDs Dispo - Admit under inpatient status noting ongoing sepsis
[2018-03-26] MEDS ORDERED: IOPAMIDOL (ISOVUE-300) 100 ML BTL ONE (06:12)
[2018-03-26] MEDS ORDERED: D50W 25 GM/50 ML SYR IVP PRN (06:29)
[2018-03-26] MEDS ORDERED: ACETAMINOPHEN 325 MG TAB PO ONE (06:59)
[2018-03-26] MEDS ORDERED: ENOXAPARIN 40 MG/0.4 ML SYR SC SCH (09:00)
[2018-03-26] MEDS ORDERED: NS 500 ML IV ONE ×2 (09:17→11:00)
[2018-03-26] MEDS ORDERED: ALTEPLASE 2 MG VIAL IVP PRN (09:20)
[2018-03-26] MEDS: INSULIN LISPRO 100 UNIT/ML SC SCH ×3 (09:34→18:33)
[2018-03-26] MEDS: ERTAPENEM 1 GM in NS 100 ML IV SCH (10:01)
[2018-03-26] MEDS ORDERED: NOREPINEPHRINE/NS 500 ML IV SCH ×2 (10:30→14:30)
[2018-03-26] MEDS ORDERED: NOREPINEPHRINE BITARTRATE 4 MG in D5W 500 ML IV SCH ×2 (10:30→18:30)
[2018-03-26] MEDS ORDERED: NOREPINEPHRINE BITARTRATE 4 MG in NS 500 ML IV SCH (10:30)
--- NOTE | 2018-03-26 10:32 | PDMN ---
Medical Necessity Medical necessity: Pt meets IP criteria per MD; est los >2 mn for eval/tx of sepsis likely r/t pneumonia w/coexisting effusion or recent cholecystectomy POD #3; admit for further workup/monitoring, PICC placement, IV abx, IVFs, supportive care & Surgery consult; hx HTN, diabetes; per H&P & order 03/26/18
[2018-03-26] MEDS: ONDANSETRON 4 MG/2 ML VIAL IVP PRN ×2 (11:30→20:14)
--- NOTE | 2018-03-26 12:02 | PDRADPN ---
Radiology Procedure Note Date of Procedure: 03/26/18 Radiologist: Andrei Garcia Pre-op Diagnosis: sepsis Post-op Diagnosis: same Indication: IV access medium term Procedure: RUE DL PICC Finding(s): 40cm DL power picc via right basilic terminates at cavoatrial junction Inf/Abcess present in the surg proc area at time of surgery?: No EBL: Minimal Complications: no
--- NOTE | 2018-03-26 14:04 | ECHO ---
[email or web address] [address] [address] Main: [phone] Fax: Transthoracic Echocardiogram Name: SUHAIL ROSENBERG MR#: [id number] Study Date: 03/26/2018 Study Time: 11:58 AM Date of : 1960 Age: 58 year(s) Height: 167.6 cm (66 in.) Weight: 100.7 kg (222 lb.) BSA: 2.09 m2 Gender: Male Examination: Echo Indication: HYPOTENSION Image Quality: Adequate Contrast: Requested by: Aftab King BP: 83 mmHg/49 mmHg Heart Rate: Rhythm: Indication: HYPOTENSION Procedure Staff Mapping Supervisor: Saida Whitaker RDCS Reading Physician: Eligio Valenzuela MD Requesting Provider: Conclusions: Normal study Measurements: Chambers Valvular Assessment AV/MV Valvular Assessment TV/PV Normal Normal Normal Name Value Range Name Value Range Name Value Range Ao Babs (2D): 3.3 cm (1.4 cm-2.6 AV meanP mmHg ( - ) PV Vmax: 1.02 m/s (0.6 m/s-0.9 cm) SAAD (VTI): 2.5 cm ( - ) m/s) IVSd (2D): 1.1 cm (0.6 cm-1.1 MV E Vmax: 0.87 m/s ( - ) PV PGmax: 4 mmHg ( - ) cm) MV A Vmax: 0.74 m/s ( - ) LVDd (2D): 4.9 cm (4.2 cm-5.9 MV E/A: 1.18 ( - ) cm) MV PHT: 0.046 s ( - ) LVDs (2D): 3.0 cm (2.1 cm-4 cm) MVA (PHT): 4.8 s ( - ) LVPWd (2D): 0.9 cm (0.6 cm-1 cm) LVOTd 2.0 cm 2.0 cm mm LVEF (BP): 61 % (>=55 %) RVDd(2D): 4.1 cm (1.9 cm-3.8 cmmm) Continued Measurements: Chambers Valvular Assessment AV/MV Valvular Assessment TV/PV Name Value Name Value Name Value LADs: 4.1 cm MV DecTime: 155 m/s CVP (est.): 5 mmHg LADs Lon.4 cm MV E/E' Lateral: 6.00 LA Area: 17.8 cm2 LA Volume: 55 ml LA Volume Index: 26.3 ml/m2 Patient: SUHAIL ROSENBERG Study Date: 03/26/2018 Page 1 of 2 11:58 AM RA Area: 16.5 cm2 Additional Vessels Name Value Ao Ascendin.7 cm Inferior Vena Cava: 1.1 cm Findings: Left Ventricle: Normal size left ventricle. No LV hypertrophy. Normal global systolic LV function. EF is 61 %. No regional wall motion abnormality. Unable to assess diastolic dysfunction. Right Ventricle: Normal size right ventricle. Normal RV function. Left Atrium: The left atrium is normal in size. Right Atrium: The right atrium is normal in size. Mitral Valve: The mitral valve is normal in appearance and function. Mild mitral valve regurgitation is present. No mitral stenosis is present. Aortic Valve: The aortic valve is normal in appearance and function. There is no significant aortic valve regurgitation. No aortic valve stenosis is present. Tricuspid Valve: The tricuspid valve is normal in appearance and function. Mild tricuspid regurgitation is present. The pulmonary artery pressure is normal. Pulmonic Valve: The pulmonic valve is normal in appearance and function. There is no pulmonic regurgitation seen. Aorta: The aorta is normal. Normal size aortic root measuring 3.3 cm. Normal size ascending aorta measuring 2.7 cm. IVC: The IVC is normal sized. Pericardium: No pericardial effusion. No pleural effusion. (No Signature Object) Patient: SUHAIL ROSENBERG Study Date: 03/26/2018 Page 2 of 2 11:58 AM [id number]
[2018-03-26] MEDS ORDERED: VASOPRESSIN 25 UNIT in NS 250 ML IV SCH (14:30)
[2018-03-26] MEDS ORDERED: VASOPRESSIN/DEXTROSE 250 ML IV SCH (14:30)
--- NOTE | 2018-03-26 14:37 | HOSPPROG ---
Hospitalist Progress Note Assessment/Plan: 58 yo male p/w malaise and chills and abd pain. He is found to have hypotension and hypoxemia. #Suspect Sepsis -source unclear but possibly Pneumonia, CXR revealed, no clear infiltrates, but presented with hypoxemia and cough s/p recent surgery -has abd pain but CT abd unrevealing -He is having significant hypotension despite fluids -will place PICC -start Invanz (PCN allergy) -Additional fluids while we place a central line and start pressors -Levophed -transfer to ICU -Lactic acid not elevated on admission, will check PC -UA unremarkable #Hypotension, likely from sepsis -check TTE #Pedal Edema, no hx of CHF -TTE pending #Abd pain in setting of recent lap siddharth -His pain seems out of proportion to his CT findings -Dr. Davis to consult #HTN: hold meds #DM -ISS Plan: Per above abx ivf pressors SCD's, transition to chemical dvt proph if no surgery needed full code total critical care time spent on the mgmt of this pt with sepsis and profound hypotension is 50 minutes Subjective: c/o abd pain, no sob. afebrile. Objective: Vital Signs Temp Pulse Resp BP Pulse Ox 37 C 90 25 H 91/55 L 99 03/26/18 13:53 03/26/18 13:53 03/26/18 13:53 03/26/18 13:53 03/26/18 13:53 03/25/18 03/26/18 03/27/18 05:59 05:59 05:59 Intake Total 3300 Balance 3300 PT 13.4 SEC (12.0-15.0) 03/26/18 04:08 INR 1.00 (0.83-1.16) 03/26/18 04:08 - Physical Exam Constitutional: no apparent distress Eyes: PERRL, EOMI Ears, Nose, Mouth, Throat: dry mucous membranes Cardiovascular: tachycardia Respiratory: reduced air movement Gastrointestinal: normoactive bowel sounds, tenderness (generalized) Skin: warm Neurologic: AAOx3 Psychiatric: interacting appropriately, not anxious, not encephalopathic Lymph, Heme, Immunologic: No petechiae ICD10 Worksheet Patient Problems: Problems Problem Status Onset Hypoxia Acute Pneumonia Acute Tachycardia Acute Cholelithiasis Acute
--- NOTE | 2018-03-26 15:28 | GCON ---
[f rep st] CONSULTATION CRITICAL CARE CONSULTATION DATE OF CONSULTATION: 03/26/2018 HISTORY OF PRESENT ILLNESS: This patient is a 58-year-old male with diabetes and hypertension who un derwent an elective laparoscopic cholecystectomy on 03/[address] Davis. He did well as an outpatient, but did have some constipation, was taking a laxative and did start moving his bowels yesterday. In the evening, however, he developed substantial rigors and fever, so presented to the emergency depart ment complaining of abdominal pain. His T-max was 39.5 in the emergency department and had ongoing r igors noted. He was given Zosyn and initially admitted to the floor after an abdominal CT scan was u nremarkable. However, became hypotensive and was emergently transferred to the intensive care unit. A PICC line was placed. He received 4 L of IV fluids and was placed on Levophed to maintain a mean arterial pressure of at least 65. At my exam, he was feeling reasonably well. He said he had some a bdominal pain only with movement. His stools were as anticipated, he said, and there were no tarry s tools or melena. He has had no nausea, vomiting, or diarrhea and has had a decreased appetite since his surgery. REVIEW OF SYSTEMS: Otherwise negative. PAST MEDICAL HISTORY: Includes hypertension, diabetes, hyperlipidemia. PAST SURGICAL HISTORY: Includes the cholecystectomy, as described above. FAMILY HISTORY: Noncontributory. 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 MEDICATIONS: At this time include ertapenem, Levophed, Zofran, Tylenol. PHYSICAL EXAM: VITAL SIGNS: T-max 39.5, T current 37. Blood pressure was 103/70, with a MAP of 65, heart rate of 91, respirations 20, oxygen saturation 92% on 3 L. GENERAL: He was obese, but alert and oriented x3, in no apparent distress, able to speak in full sentences without using accessory mus cles for breathing. HEENT: Pupils equally round and reactive to light. Nonicteric and noninjected. Mucous membranes are moist, without erythema or exudate. NECK: Supple, without adenopathy or jugu lar vein distention. LUNGS: Breath sounds were clear to auscultation bilaterally, though diminished . HEART: Regular rate and rhythm, without obvious murmur. ABDOMEN: Soft and nontender, except wit h movement. There was no guarding. No masses. No fluctuance. His incisions looked clean and dry, without evidence of superficial infection. EXTREMITIES: 1+ edema bilaterally and were tender. NEUR OLOGIC: Nonfocal. SKIN: Warm and dry, without evidence of rash. LABORATORY DATA: Objective data includes a white count of 6.3, hematocrit 37, platelets of 359. Coa gs were normal. Basic metabolic panel was unremarkable, save for an anion gap of 25. LFTs were norm al. Troponin negative. BNP only 212. Procalcitonin 1.4. UA was negative, but blood cultures repor tedly growing gram-negative rods, per the nursing staff. A CT scan of his abdomen was unremarkable, as well as the chest. ASSESSMENT/PLAN: 1. Septic shock. He should be on a septic protocol at this time, though he does seem to be getting better. I think ertapenem is a reasonable drug, particularly for the gram-negative rods that may hav e translocated as a result of his constipation, which is now relieved. I think C diff is highly unli mayi, and I do not think that isolation is required. In terms of hemodynamic support, Levophed is qu ite reasonable and is at 10 mcg/kg at this time. I would add vasopressin. I do not think that syste starr steroids are indicated at this time. I believe an echocardiogram was also done, though an acute coronary syndrome seems very unlikely. 2. Diabetes. I would use sliding scale insulin, avoid metformin at this time, though his venous lac avila was only 2. This certainly has potential to cause higher lactate levels and may confuse the und erlying picture. 3. Hypertension. Certainly holding his antihypertensive medications for now. 4. A total of 35 minutes of critical care time was required in the evaluation of this patient. /[id number]/MODL
--- NOTE | 2018-03-26 15:31 | ASMTCASEMG ---
Living Arrangements What is your living Answers: Alone arrangement? Who do you live with? Type Of Residence What kind of residence do Answers: Apartment you live in? 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 He was admitted for tachycardia, hypoxia, pneumonia, cholelithiasis. No therapies ordered at this time. D/C plan TBD. CM will follow. Date Signed: 03/26/2018 03:31 PM Electronically Signed By:Elisha Willingham LCSW
--- NOTE | 2018-03-26 15:39 | GCON ---
[f rep st] CONSULTATION DATE OF CONSULTATION: 03/26/2018 REASON FOR EVALUATION: Sepsis. HISTORY OF PRESENT ILLNESS: 58-year-old male status post uncomplicated laparoscopic cholecystectomy on March 23, 2018 for biliary colic. He had an unremarkable surgical course and was discharged to home in the outpatient setting. He presented to the emergency room early this morning with complaints of shortness of breath, chest pain, and shaking chills starting at 3 o'clock. He stated that he did have some mild nausea the night before. His pain had been constantly improving since surgery. He denies emesis. He reports 1 loose bowel movement at home. He denies voiding complaints. Upon ED arrival, he was noted to be hypotensive and tachycardic. Workup included considerations for possible pneumonia with an unremarkable abdominal CT. He was admitted to the hospitalist service for further workup and management. Surgery has been requested for postsurgical assessment. At the present time the patient is seen in the ICU, having returned from his PICC line placement. He denies chest pains or shortness of breath at this time. He reports improving post surgical abdominal pain. He denies nausea or vomiting. He reports that he is feeling lethargic, otherwise without specific new concerns. PAST MEDICAL HISTORY: Diabetes, hyperlipidemia, hypertension, history of peptic ulcer disease, history of diverticulitis, asthma. PAST SURGICAL HISTORY: Vagotomy, recent laparoscopic cholecystectomy, left hand 5th finger repair. MEDICATIONS: Lisinopril/hydrochlorothiazide, metformin. ALLERGIES: Penicillin, sulfa. SOCIAL HISTORY: No alcohol, no tobacco. 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 PHYSICAL EXAM: VITAL SIGNS: Temperature 36.6, blood pressure 83/49, pulse 95, respirations 28. GENERAL: The patient is alert, appropriate, comfortable, no distress. HEENT: Pupils are sunken. Face appears swollen and flushed. HEART : Regular without murmurs. LUNGS: Clear bilaterally. ABDOMEN: Soft, appropriately distended, appropriate postsurgical tenderness without rebound or guarding. Incisions are clean without erythema. No ecchymosis. EXTREMITIES: Without edema. NEUROLOGIC: Alert and appropriate. SKIN: Without rashes. LABORATORY DATA: White count 6, hemoglobin 12, platelets of 360. INR of 1. Electrolytes within reference range. Liver enzymes within reference range. Blood cultures with gram-negative rods. CT images were directly reviewed on PACS. CT chest without evidence of pulmonary emboli. Right lower lobe atelectasis with small effusion noted. CT abdomen and pelvis with an appropriate gallbladder bed. Blood with scattered air droplets. The surrounding colon and duodenum without thickening. No gross free air. IMPRESSION: Gram-negative sepsis status post laparoscopic cholecystectomy. Query transient bacteremia, post cholecystectomy versus possible pneumonia. PLAN: The patient has been appropriately fluid resuscitated and broad-spectrum antibiotics initiated in the emergency room. Will await further culture and identification. CT findings of fluid appears to be postsurgical in nature. I have low suspicion for abscess formation. Should patient fail to improve or develop worsening abdominal pain, would consider abdominal re-imaging only at that time. /[id number]/MODL MTDD
[2018-03-26] MEDS: ACETAMINOPHEN 325 MG TAB PO PRN (20:15)
[2018-03-27] MEDS: ACETAMINOPHEN 325 MG TAB PO PRN ×3 (00:18→18:10)
[2018-03-27 04:22] LABS: PLATELET COUNT 187 10^3/uL (150-400)
[2018-03-27] MEDS ORDERED: POTASSIUM CL 20 MEQ TAB PO ONE (05:02)
[2018-03-27] MEDS: INSULIN LISPRO 100 UNIT/ML SC SCH ×3 (08:26→17:32)
[2018-03-27] MEDS ORDERED: PROTOCOL POTASSIUM 1 DOSE MISC PRN ×2 (08:28)
[2018-03-27] MEDS ORDERED: PROTOCOL MAGNESIUM 1 DOSE IV PRN (08:28)
--- NOTE | 2018-03-27 09:38 | CPEKG ---
Heart Rate: 126 RR Interval: 476 QRSD Interval: 74 QT Interval: 300 QTC Interval: 435 QRS [place]: 5 T Wave [place]: 17 EKG Severity - ABNORMAL ECG - EKG Impression: ATRIAL FIBRILLATION EKG Impression: ANTERIOR INFARCT, OLD Electronically Signed By: Eugene Wolf 29-Mar-2018 10:26:05
[2018-03-27] MEDS ORDERED: AMIODARONE A.FIB-LOAD DOSE(ORDER 1/3) PREMIX IV ONE (10:00)
[2018-03-27] MEDS ORDERED: AMIODARONE A.FIB-18HR INFSN (ORDER 3/3) IV ONE (10:00)
[2018-03-27] MEDS ORDERED: AMIODARONE A.FIB-6HR INFSN (ORDER 2/3) PREMIX IV ONE (10:00)
[2018-03-27] MEDS ORDERED: ENOXAPARIN 100 MG/ML SYR SC SCH (10:00)
[2018-03-27] MEDS ORDERED: IOPAMIDOL (ISOVUE 370) 100 ML BTL IV ONE (10:37)
--- NOTE | 2018-03-27 11:09 | SOAPPROG ---
SOAP Progress Note Assessment/Plan: Assessment/Plan: 58-year-old gentleman several days status post laparoscopic cholecystectomy presented with chest abdominal pain shortness of breath. CT angiogram did not demonstrate pulmonary embolus he was found to have 2 blood cultures positive for gram-negative fermenting rods. He is on appropriate broad-spectrum antibiotics and initial hypotension likely secondary to septic shock treated with aggressive hydration and vasopressive medication is now better. He has been weaned off Levophed diarrhea was tested for C diff which was negative. Complained of chest pain overnight a rib being noted EKG this morning shows atrial fibrillation. Hemodynamically stable with blood pressure of 116/72 heart rate 103-108 Clear to auscultation bilaterally Abdomen softly distended appropriately tender around incisions no signs of infection or herniation Peripheral edema secondary to resuscitation EKG reviewed atrial fibrillation identified Amiodarone IV loading dose per protocol Anticoagulation for atrial fibrillation CTA ordered for chest pain posterior left overnight Likely bacteremia from cholecystectomy and a rib me a secondary to fluid shifts. Will continue to follow peripherally appreciate Medicine in critical care input no need for surgical intervention/drainage of small collection in gallbladder fossa 03/27/18 11:05 Objective: Vital Signs Temp Pulse Resp BP Pulse Ox 37.3 C 135 H 33 H 116/65 98 03/27/18 10:00 03/27/18 10:00 03/27/18 10:00 03/27/18 10:00 03/27/18 10:00 Laboratory Results 03/27/18 04:00 03/27/18 04:00 03/26/18 03/27/18 03/28/18 05:59 05:59 05:59 Intake Total 97642 Output Total 1975 Balance 8289 PT 13.4 SEC (12.0-15.0) 03/26/18 04:08 INR 1.00 (0.83-1.16) 03/26/18 04:08 ICD10 Worksheet Patient Problems: Problems Problem Status Onset Hypoxia Acute Pneumonia Acute Tachycardia Acute Cholelithiasis Acute
[2018-03-27] MEDS: ATORVASTATIN CALCIUM 20 MG TAB PO SCH (11:50)
[2018-03-27] MEDS: ERTAPENEM 1 GM in NS 100 ML IV SCH (11:50)
[2018-03-27] MEDS ORDERED: FUROSEMIDE 20 MG/2 ML VIAL IVP ONE ×2 (12:15→16:00)
--- NOTE | 2018-03-27 12:22 | HOSPPROG ---
Hospitalist Progress Note Assessment/Plan: 58 yo male p/w malaise and chills and abd pain. He is found to have hypotension and hypoxemia. #Septic Shock -Blood cultures c/w E-Colie -Likely source is related to Cholecystectomy -CT Abd no abscess, no indication of surgery at this time -cont with Ertapenem -Has weaned off pressors -PICC previously place #Volume overload and peripheral edema -due to resuscitation -now that BP is stable will provide IV Lasix x 1 #Afib -New diagnosis -likely due to cardiac strain -Cont Amio -Lovenox BID -Fluid volume optimization should help as well -TTE reviewed, preserved EF #Abd pain, mild pain #s/p recent Lap Nemo -Dr. Davis consulting #HTN: hold meds #DM -ISS #Hypokalemia: replace per protocol. Check Mg #Diarrhea: non C-Diff #Anemia, no e/o of acute bleed. follow for now cont ICU care, can hopefully be downgraded tomorrow total critical care time is 35 mins Subjective: went into Afib. BP much improved. Off pressors. + diarrhea Objective: Vital Signs Temp Pulse Resp BP Pulse Ox 37.3 C 106 H 18 112/73 98 03/27/18 10:00 03/27/18 11:00 03/27/18 11:00 03/27/18 11:00 03/27/18 11:00 Laboratory Results 03/27/18 04:00 03/27/18 04:00 03/26/18 03/27/18 03/28/18 05:59 05:59 05:59 Intake Total 67785 Output Total 1975 Balance 8289 PT 13.4 SEC (12.0-15.0) 03/26/18 04:08 INR 1.00 (0.83-1.16) 03/26/18 04:08 - Physical Exam Constitutional: no apparent distress, not in pain Eyes: PERRL, EOMI Ears, Nose, Mouth, Throat: moist mucous membranes, hearing normal Cardiovascular: irregularly irregular, edema Respiratory: no respiratory distress, no rales or rhonchi, reduced air movement Gastrointestinal: normoactive bowel sounds Skin: warm Neurologic: AAOx3 Psychiatric: interacting appropriately, not anxious, not encephalopathic ICD10 Worksheet Patient Problems: Problems Problem Status Onset Hypoxia Acute Pneumonia Acute Tachycardia Acute Cholelithiasis Acute
--- NOTE | 2018-03-27 13:38 | PDINTPN ---
Senior Games Technician Progress Note Assessment/Plan: Assessment/plan: 58 M s/p recent uncomplicated lap siddharth by Dr. Davis and sent home from outpatient surgery center admitted 03/26 with hypotension. He complained of constipation which was relieved with laxatives, but then developed sever rigors and fever. Tm was 39 on arrival, while a CT showed only expected postop changes. He was initially admitted to the floor, but developed rpaid and sever hypotension requiring levophed, vasopressin, and hydrocortisone. Blood cultures grew E. Coli, and he responded well to Ertapenem. * Septic shock with bacteremia- I suspect translocation of GI lena with no evidence of endocarditis. Levophed weaned off 03/27 without difficulty. Will eventually require repeat blood cultures for surveillance. * Atrial fibrillation with RVR- rate max up to 150 and documented on EKG, but converted to NSR before amiodarone could be given (chosen to avoid hypotension) . Etiology uncertain, but CTA on admission and repeat 03/27 without evidence for VTE. Prophylactic LMWH started 03/27. Echo was normal 03/26. KRISTI could be a factor as could excess IVF- will discuss. Subjective: new onset afib last pm associated with left sided "left lung" pain and complains of palpitations. No associated hypotension however. Objective: Vital Signs Temp Pulse Resp BP Pulse Ox 37.3 C 106 H 18 112/73 98 03/27/18 10:00 03/27/18 11:00 03/27/18 11:00 03/27/18 11:00 03/27/18 11:00 Laboratory Results 03/27/18 04:00 03/27/18 12:14 03/26/18 03/27/18 03/28/18 05:59 05:59 05:59 Intake Total 68838 Output Total 1975 750 Balance 8289 -750 PT 13.4 SEC (12.0-15.0) 03/26/18 04:08 INR 1.00 (0.83-1.16) 03/26/18 04:08 Physical Exam - Physical Exam General Appearance: alert, no apparent distress, obese EENT: PERRL/EOMI Neck: supple Respiratory: lungs clear, normal breath sounds, No respiratory distress, No accessory muscle use Cardiac/Chest: edema, irregularly irregular Abdomen: non-tender, soft, No distended Skin: normal color, warm/dry, No cyanosis Lymphatic: no adenopathy Extremities: pedal edema Neuro/Psych: alert, normal mood/affect, oriented x 3 ICD10 Worksheet Patient Problems: Problems Problem Status Onset Hypoxia Acute Pneumonia Acute Tachycardia Acute Cholelithiasis Acute
[2018-03-27] MEDS: POTASSIUM Cl (KCl) 50 ML IV SCH ×3 (14:54→16:38)
[2018-03-27] MEDS ORDERED: POTASSIUM CL 10 MEQ TAB PO ONE (19:36)
[2018-03-27] MEDS: PANTOPRAZOLE SODIUM 40 MG TAB PO SCH (20:34)
[2018-03-27] MEDS ORDERED: NON-FORMULARY NEW DRUG (Omeprazole [Omeprazole] 20 MG) PO SCH (21:00)
[2018-03-28] MEDS: ACETAMINOPHEN 325 MG TAB PO PRN ×3 (00:09→18:34)
[2018-03-28] MEDS ORDERED: POTASSIUM Cl (KCl) 50 ML IV ONE (02:24)
[2018-03-28] MEDS: INSULIN LISPRO 100 UNIT/ML SC SCH ×3 (07:22→18:29)
[2018-03-28] MEDS ORDERED: POTASSIUM CL 10 MEQ TAB PO ONE ×2 (09:46→20:24)
--- NOTE | 2018-03-28 09:47 | SOAPPROG ---
SOAP Progress Note Assessment/Plan: Assessment/Plan: 58-year-old gentleman several days status post laparoscopic cholecystectomy presented with chest abdominal pain shortness of breath. CT angiogram did not demonstrate pulmonary embolus he was found to have 2 blood cultures positive for gram-negative fermenting rods -FINAL on 1st culture Ecoli trinh sensitive. He is on Ertapenam and initial hypotension likely secondary to septic shock treated with aggressive hydration and vasopressive medication is now better. He has been weaned off Levophed diarrhea was tested for C diff which was negative. Complains of right upper quadrant stabbing pain worse with inspiration. Hemodynamically stable with blood pressure of 116/72 heart rate 100s. Clear to auscultation bilaterally Abdomen softly distended appropriately tender around incisions no signs of infection or herniation Peripheral edema secondary to resuscitation CTA 03/27 unchanged from 03/26 Likely bacteremia from cholecystectomy. Diurese if appropriate Will continue to follow peripherally appreciate Medicine & Critical care input. No current need for surgical intervention/drainage of small collection in gallbladder fossa. (U/S tomorrow if pain not treated with NSAIDs/tylenol) 03/27/18 11:05 03/28/18 09:44 Objective: Vital Signs Temp Pulse Resp BP Pulse Ox 37.1 C 84 24 H 131/79 H 97 03/27/18 20:00 03/28/18 06:00 03/28/18 06:00 03/28/18 06:00 03/28/18 06:00 Laboratory Results 03/27/18 04:00 03/28/18 05:25 03/27/18 03/28/18 03/29/18 05:59 05:59 05:59 Intake Total 96655 1503 Output Total 1805 3516 Balance 8289 -347 PT 13.4 SEC (12.0-15.0) 03/26/18 04:08 INR 1.00 (0.83-1.16) 03/26/18 04:08 ICD10 Worksheet Patient Problems: Problems Problem Status Onset Fever Acute Hypoxia Acute Pneumonia Acute Tachycardia Acute Cholelithiasis Acute
[2018-03-28] MEDS: ATORVASTATIN CALCIUM 20 MG TAB PO SCH (09:56)
[2018-03-28] MEDS: ENOXAPARIN 40 MG/0.4 ML SYR SC SCH (09:56)
[2018-03-28] MEDS: ERTAPENEM 1 GM in NS 100 ML IV SCH (09:56)
--- NOTE | 2018-03-28 12:15 | PDINTPN ---
Sap Pp Consultant Progress Note Assessment/Plan: Assessment/plan: 58 M s/p recent uncomplicated lap siddharth by Dr. Davis and sent home from outpatient surgery center admitted 03/26 with hypotension. He complained of constipation which was relieved with laxatives, but then developed sever rigors and fever. Tm was 39 on arrival, while a CT showed only expected postop changes. He was initially admitted to the floor, but developed rpaid and sever hypotension requiring levophed, vasopressin, and hydrocortisone. Blood cultures grew E. Coli, and he responded well to Ertapenem. * Septic shock with bacteremia- I suspect translocation of GI lena with no evidence of endocarditis. Levophed weaned off 03/27 without difficulty. Will eventually require repeat blood cultures for surveillance. abdominal discomfort seems like normal postop variation with normalizing labs. Defer to surgery for any further workup * Atrial fibrillation with RVR- rate max up to 150 and documented on EKG, but converted to NSR before amiodarone could be given (chosen to avoid hypotension) . Etiology uncertain, but CTA on admission and repeat 03/27 without evidence for VTE. Prophylactic LMWH started 03/27. Echo was normal 03/26. KRISTI could be a factor as could excess IVF * OK for med surg with tele 03/28/18 12:13 Subjective: c/o some RUQ pain with deep inspiration, but off pressors and no more afib Objective: Vital Signs Temp Pulse Resp BP Pulse Ox 37.5 C 94 21 H 125/77 H 97 03/28/18 10:44 03/28/18 10:44 03/28/18 10:44 03/28/18 10:44 03/28/18 10:44 Laboratory Results 03/27/18 04:00 03/28/18 05:25 03/27/18 03/28/18 03/29/18 05:59 05:59 05:59 Intake Total 67093 1503 Output Total 1975 1850 200 Balance 8289 -347 -200 PT 13.4 SEC (12.0-15.0) 03/26/18 04:08 INR 1.00 (0.83-1.16) 03/26/18 04:08 Physical Exam - Physical Exam General Appearance: WD/WN, alert, no apparent distress, obese EENT: PERRL/EOMI Neck: supple Respiratory: lungs clear, normal breath sounds, No respiratory distress, No accessory muscle use Cardiac/Chest: regular rate, rhythm, No edema Abdomen: normal bowel sounds, soft, No distended, No guarding, No rebound Skin: normal color, warm/dry, No cyanosis Lymphatic: no adenopathy Extremities: No pedal edema Neuro/Psych: alert, normal mood/affect, oriented x 3 ICD10 Worksheet Patient Problems: Problems Problem Status Onset Fever Acute Hypoxia Acute Pneumonia Acute Tachycardia Acute Cholelithiasis Acute
[2018-03-28] MEDS ORDERED: FUROSEMIDE 20 MG/2 ML VIAL IVP ONE (13:43)
--- NOTE | 2018-03-28 14:26 | HOSPPROG ---
Hospitalist Progress Note Assessment/Plan: 58 yo male p/w malaise and chills and abd pain. He is found to have hypotension and hypoxemia. #Septic Shock -Blood cultures c/w E-Coli, pansensitive, will change Ertapenem to Levaquin -Likely source is related to Cholecystectomy -CT Abd no abscess, no indication of surgery at this time -Still with Abd pain, will order US as this was d/w the patient by Surgery and the pt is requesting it now -Has weaned off pressors -PICC in place #Bacteremia -per above -recheck BCX's today #Volume overload and peripheral edema -due to resuscitation -Lasix x 1, hopefully BP will cooperate #Afib -New diagnosis -he self converted prior to Amio being given -Cont to monitor closely -No need for Lovenox BID, switched back to daily -Would cont to diurese if needed -TTE reviewed, preserved EF #Abd pain, RUQ, worse today #s/p recent Lap Nemo -Dr. Davis consulting #HTN: hold meds #DM -ISS #Hypokalemia: replace per protocol. Check Mg #Diarrhea: non C-Diff #Anemia, no e/o of acute bleed. follow for now Ok to transfer out of the ICU cont telemetry Subjective: no cp or sob. still with abd pain, RUQ. worse pain today. Objective: Vital Signs Temp Pulse Resp BP Pulse Ox 36.6 C 90 16 124/87 H 97 03/28/18 13:17 03/28/18 13:17 03/28/18 13:17 03/28/18 13:17 03/28/18 13:17 Laboratory Results 03/27/18 04:00 03/28/18 05:25 03/27/18 03/28/18 03/29/18 05:59 05:59 05:59 Intake Total 60531 1503 Output Total 1975 1850 200 Balance 8289 -347 -200 PT 13.4 SEC (12.0-15.0) 03/26/18 04:08 INR 1.00 (0.83-1.16) 03/26/18 04:08 - Physical Exam Constitutional: no apparent distress Eyes: PERRL, EOMI Ears, Nose, Mouth, Throat: moist mucous membranes, hearing normal Cardiovascular: regular rate and rhythym, No edema Respiratory: no respiratory distress, no rales or rhonchi Gastrointestinal: normoactive bowel sounds, tenderness (RUQ, TTP), No guarding, No rebound, No distension Genitourinary: no bladder fullness Skin: warm Neurologic: AAOx3 Psychiatric: interacting appropriately, not anxious, not encephalopathic Lymph, Heme, Immunologic: No petechiae ICD10 Worksheet Patient Problems: Problems Problem Status Onset Fever Acute Hypoxia Acute Pneumonia Acute Tachycardia Acute Cholelithiasis Acute
[2018-03-28 20:08] LABS: PLATELET COUNT 219 10^3/uL (150-400)
[2018-03-28] MEDS: PANTOPRAZOLE SODIUM 40 MG TAB PO SCH (20:31)
[2018-03-29] MEDS: ACETAMINOPHEN 325 MG TAB PO PRN ×3 (04:32→21:16)
--- NOTE | 2018-03-29 08:17 | HOSPPROG ---
Hospitalist Progress Note Assessment/Plan: #Septic shock: resolved. Due to E coli bacteremia. #E coli bacteremia: due to recent choley. Repeat bld cultures pending. Day 02/13 of abx. -No surgical intervention per Dr. Holder #Abd pain: no abscess on CT. RUQ U/S unremarkable #Rib pain: no fracture, no PE. Suspect musculoskeleta #A fib: converted back to NSR. No AC warranted. EF 60% #AHRF: resolved #Deconditioning: due to critical illness. Is healthcare or medical for elderly roommate. Want strength improved prior to DC #Diet: regular #DVT ppx: Lovenox #Disp: inpatient admission for abx. Plan for DC tomorrow if clinically improved Subjective: c/o right flank pain, worse with deep breath Objective: Vital Signs Temp Pulse Resp BP Pulse Ox 37.1 C 77 16 103/66 99 03/29/18 04:00 03/29/18 04:00 03/29/18 04:00 03/29/18 04:00 03/29/18 04:00 Laboratory Results 03/28/18 20:00 03/29/18 05:12 03/28/18 03/29/18 03/30/18 05:59 05:59 05:59 Intake Total 1503 Output Total 1850 1500 Balance -347 -1500 PT 13.4 SEC (12.0-15.0) 03/26/18 04:08 INR 1.00 (0.83-1.16) 03/26/18 04:08 - Time Spent With Patient Time Spent with Patient: greater than 35 minutes Time Spent with Patient: Greater than 35 minutes spent on this patients care, greater than 50% of time spent counseling, educating, and coordinating care regarding the above mentioned plan. - Physical Exam Constitutional: other (fatigued) Eyes: PERRL Ears, Nose, Mouth, Throat: moist mucous membranes, hearing normal Cardiovascular: regular rate and rhythym, no murmur, rub, or gallop, No edema Respiratory: no respiratory distress, no rales or rhonchi Gastrointestinal: normoactive bowel sounds, tenderness (mild RUQ), No guarding, No rebound Genitourinary: No santos in urethra Skin: warm Musculoskeletal: full muscle strength, no muscle tenderness, other (no flank TTP ) Neurologic: AAOx3, CN II-XII Intact Psychiatric: interacting appropriately, flat affect ICD10 Worksheet Patient Problems: Problems Problem Status Onset Fever Acute Hypoxia Acute Pneumonia Acute Tachycardia Acute Cholelithiasis Acute
--- NOTE | 2018-03-29 08:47 | SOAPPROG ---
SOAP Progress Note Assessment/Plan: Assessment/Plan: 58-year-old gentleman several days status post laparoscopic cholecystectomy presented with chest abdominal pain shortness of breath. CT angiogram did not demonstrate pulmonary embolus he was found to have 2 blood cultures positive for gram-negative fermenting rods -FINAL on 1st culture Ecoli trinh sensitive. He is on Ertapenam and initial hypotension likely secondary to septic shock treated with aggressive hydration and vasopressive medication is now better. He has been weaned off Levophed diarrhea was tested for C diff which was negative. Complains of right upper quadrant stabbing pain worse with inspiration. Also now c/o posterior rib bilaterally. Recent CTA for pain negative. Likely musculoskeletal Hemodynamically stable with blood pressure of 116/72 heart rate 100s. AFEBRILE despite sweats overnight Clear to auscultation bilaterally Abdomen softly distended appropriately tender around incisions no signs of infection or herniation Peripheral edema secondary to resuscitation CTA 03/27 unchanged from 03/26 Likely bacteremia from cholecystectomy. Diurese if appropriate Will continue to follow peripherally appreciate Medicine & Critical care input. No current need for surgical intervention/drainage of small collection in gallbladder fossa. U/S done yesterday 17mm collection consistent with post surgical change no abscess. 03/27/18 11:05 03/28/18 09:44 03/29/18 08:43 03/29/18 08:46 Objective: Vital Signs Temp Pulse Resp BP Pulse Ox 37.1 C 77 16 103/66 99 03/29/18 04:00 03/29/18 04:00 03/29/18 04:00 03/29/18 04:00 03/29/18 04:00 Laboratory Results 03/28/18 20:00 03/29/18 05:12 03/28/18 03/29/18 03/30/18 05:59 05:59 05:59 Intake Total 1503 Output Total 1850 1500 Balance -347 -1500 PT 13.4 SEC (12.0-15.0) 03/26/18 04:08 INR 1.00 (0.83-1.16) 03/26/18 04:08 ICD10 Worksheet Patient Problems: Problems Problem Status Onset Fever Acute Hypoxia Acute Pneumonia Acute Tachycardia Acute Cholelithiasis Acute
[2018-03-29] MEDS: INSULIN LISPRO 100 UNIT/ML SC SCH ×3 (09:05→18:37)
[2018-03-29] MEDS: ATORVASTATIN CALCIUM 20 MG TAB PO SCH (09:06)
[2018-03-29] MEDS: ENOXAPARIN 40 MG/0.4 ML SYR SC SCH (09:06)
[2018-03-29] MEDS ORDERED: POTASSIUM CL 10 MEQ TAB PO ONE (09:19)
[2018-03-29] MEDS: PANTOPRAZOLE SODIUM 40 MG TAB PO SCH (19:59)
[2018-03-29] MEDS ORDERED: ALBUTEROL 3 ML DEYVIAL IH PRN (23:02)
[2018-03-30] MEDS ORDERED: CYANO/VITAMIN B12 1000 MCG TAB PO SCH (08:00)
--- NOTE | 2018-03-30 08:56 | SOAPPROG ---
SOAP Progress Note Assessment/Plan: Assessment/Plan: 58-year-old gentleman several days status post laparoscopic cholecystectomy presented with chest abdominal pain shortness of breath. CT angiogram did not demonstrate pulmonary embolus he was found to have 2 blood cultures positive for gram-negative fermenting rods -FINAL on 1st culture Ecoli trinh sensitive. He is on Ertapenam and initial hypotension likely secondary to septic shock treated with aggressive hydration and vasopressive medication is now better. He has been weaned off Levophed diarrhea was tested for C diff which was negative. Complains of right upper quadrant stabbing pain worse with inspiration. Also now c/o posterior rib bilaterally. Recent CTA for pain negative. Likely musculoskeletal Hemodynamically stable with blood pressure of 116/72 heart rate 100s. Repeat blood cx negative and pending AFEBRILE despite sweats overnight Clear to auscultation bilaterally Abdomen softly distended appropriately tender around incisions no signs of infection or herniation Peripheral edema secondary to resuscitation resolved CTA 03/27 unchanged from 03/26 Likely bacteremia from cholecystectomy. ?D/C today on appropriate antibiotic course. Will see in office in 1 week 03/27/18 11:05 03/28/18 09:44 03/29/18 08:43 03/29/18 08:46 03/30/18 08:53 Objective: Vital Signs Temp Pulse Resp BP Pulse Ox 37.1 C 92 18 150/99 H 92 03/30/18 04:00 03/30/18 04:00 03/30/18 04:00 03/30/18 04:00 03/30/18 04:00 Laboratory Results 03/28/18 20:00 03/29/18 05:12 03/29/18 03/30/18 03/31/18 05:59 05:59 05:59 Intake Total 165 Output Total 1500 Balance -1500 165 PT 13.4 SEC (12.0-15.0) 03/26/18 04:08 INR 1.00 (0.83-1.16) 03/26/18 04:08 ICD10 Worksheet Patient Problems: Problems Problem Status Onset Fever Acute Hypoxia Acute Pneumonia Acute Tachycardia Acute Cholelithiasis Acute
[2018-03-30] MEDS: ATORVASTATIN CALCIUM 20 MG TAB PO SCH (09:03)
[2018-03-30] MEDS: ENOXAPARIN 40 MG/0.4 ML SYR SC SCH (09:04)
[2018-03-30] MEDS: INSULIN LISPRO 100 UNIT/ML SC SCH ×2 (09:04→11:18)
[2018-03-30 09:46] VITALS: BP 135/78
[2018-03-30] MEDS ORDERED: LISINOPRIL 10 MG TAB PO SCH (10:30)
--- NOTE | 2018-03-30 15:35 | GDS ---
[f rep st] DISCHARGE SUMMARY DISCHARGE DIAGNOSES: Include: 1. Septic shock, secondary to Escherichia coli bacteremia, resolved. 2. Escherichia coli bacteremia, status post recent cholecystectomy. 3. Acute hypoxic respiratory failure. HISTORY OF PRESENT ILLNESS: This is a 58-year-old male who presents 03/26/2018, with complaints of r igors and abdominal pain. For details of the patient's initial presentation, please see the history and physical dated 03/26/2018. CONSULTATIVE SERVICES: Include General Surgery. PROCEDURES: On 03/27/2018, patient had CT-A of the thorax that shows no PE, bibasilar atelectasis an d post cholecystectomy stranding. On 03/28/2018, patient had an ultrasound of the abdomen that shows no fluid collections, minimal fluid and air status post cholecystectomy. HOSPITAL COURSE: 1. Septic shock. The patient presented with rigors, hypotension, and tachycardia, as well as fever. Blood cultures were drawn and grew 2 of 2 E coli. Patient was initiated on IV antibiotics and kline sitioned to oral levofloxacin. Surveillance cultures from 03/28/2018, remain negative on the day of disposition. He will be discharged to complete a 14 day course of oral levofloxacin. 2. Post-cholecystectomy. Patient was seen by General Surgery and will follow in the outpatient sett ing with Dr. Holder. He is tolerating a regular diet on day of disposition with tolerable abdominal discomfort postop. 3. Escherichia coli bacteremia, presumed secondary to his postsurgical state. Again, his surveillan ce cultures have cleared. He will be continued on 14 day course of antibiotics. MEDICATIONS AT TIME OF TRANSFER: Please reference the medication reconciliation printed on 8. PENDING STUDIES: At the time of this dictation, include blood cultures drawn 03/28/2018, which are p reliminary no growth today. FOLLOWUP APPOINTMENTS: Include with Dr. Holder scheduled 04/06/2018. I spent greater than 30 minutes in the planning and coordination of this discharge. /[id number]/MODL
[2018-03-30] MEDS ORDERED: CARVEDILOL 6.25 MG TAB PO SCH (21:00)
== END 2018-03-30 12:45 | disposition home or self-care (01) | DRG 721 ==
LOC: EDUNIT# → OBSVTOIN 05:28 → F2W 08:36 → F2N 11:40 → F3E 03-28 13:12
PROVIDERS: ADMIT Student in an Organized Health Care Education/Training Program; ATTEND Student in an Organized Health Care Education/Training Program
DX: T81.4XXA Infection following a procedure, initial encounter (principal); A41.51 Sepsis due to Escherichia coli [E. coli]; R65.21 Severe sepsis with septic shock; J96.01 Acute respiratory failure with hypoxia; I48.91 Unspecified atrial fibrillation; I10 Essential (primary) hypertension; J45.909 Unspecified asthma, uncomplicated; E11.9 Type 2 diabetes mellitus without complications; Z87.891 Personal history of nicotine dependence
CPT/HCPCS: 96374; C1751; J0282; J1335; J1650; J1815; J1940; J1956; J2405; J3480; J7613; Q9967

== ENCOUNTER → 2018-04-05 | Outpatient (CLI) | payer MEDICAID | LOC: FIMAGING 14:16 | PROVIDERS: ATTEND Internal Medicine Infectious Disease | DX: R07.81 Pleurodynia (principal); R78.81 Bacteremia ==

== ENCOUNTER 2019-01-06 20:16 | Emergency (ER) | payer MEDICAID ==
[2019-01-06] MEDS ORDERED: ACETAMINOPHEN 500 MG TAB PO ONE (23:10)
[2019-01-06] MEDS ORDERED: IBUPROFEN 200 MG TAB PO ONE (23:10)
--- NOTE | 2019-01-06 23:14 | EDPHY ---
H & P Stated Complaint: DAMON, L shoulder, back pain after fall Time Seen by Provider: 01/06/19 22:58 HPI/ROS: HPI: The patient presents with fall on the ice which occurred at about 5:30 p.m. Tonight. He was walking down a decline and slipped on the ice falling backwards hitting his head on concrete. He was able to get up but noticed that he had posterior neck pain which was worse when he flexed his neck. This radiated to his upper thoracic spine. The pain also radiates toward his left shoulder. He has mild paresthesias reported of his left upper trapezius. He noticed that when he flexed his neck he heard a clicking noise and this is what prompted him to come to the emergency department. In contrast to his triage note, he denies any headache. He does not have nausea, vomiting, behavioral change, vision change, weakness of his arms or legs. He denies any other injuries. REVIEW OF SYSTEMS 10 systems were reviewed and negative with the exception of the elements mentioned in the history of present illness. PMHx: Diabetes, hypertension, asthma TRAUMA PHYSICAL General Appearance: Alert, no distress Head: Atraumatic Eyes: Pupils equal, round, reactive ENT, Mouth: No hemotypanium, no oral trauma Neck: Tenderness from C5-C7, pain is worse with flexion of his neck, trachea midline Respiratory: No chest wall tenderness, no subcutaneous air, lungs clear bilaterally Cardiovascular: Regular rate and rhythm Abdomen: Abdomen is soft and non-tender, pelvis stable Skin: No lacerations, No abrasion Back: There is tenderness of the upper thoracic spine at the midline, there is no tenderness of the midline L/S pain Extremities: Non-tender, full range of motion Neurological: A&Ox3, GCS=15,normal motor function with 5/5 strength in all 4 extremities, normal sensory exam throughout upper extremities Source: Patient Exam Limitations: No limitations - Personal History Current Tetanus/Diphtheria Vaccine: Yes - Medical/Surgical History Hx Asthma: Yes Hx Chronic Respiratory Disease: No Hx Diabetes: Yes Hx Cardiac Disease: No Hx Renal Disease: No Hx Cirrhosis: No Hx Alcoholism: No Hx HIV/AIDS: No Hx Splenectomy or Spleen Trauma: No Other PMH: DM, HTN, asthma,. back sx - Social History Smoking Status: Former smoker Constitutional: Initial Vital Signs Temperature (C) 37.1 C 01/06/19 20:24 Heart Rate 90 01/06/19 20:24 Respiratory Rate 18 01/06/19 20:24 Blood Pressure 124/77 H 01/06/19 20:24 O2 Sat (%) 95 01/06/19 20:24 O2 Delivery Mode Room Air Allergies/Adverse Reactions: Penicillins Allergy (Verified 01/06/19 20:26) Rash Sulfa (Sulfonamide Antibiotics) Allergy (Verified 01/06/19 20:26) Rash Home Medications: Medication Instructions Recorded metFORMIN HCL [Glucophage 1000 mg] 2,000 mg PO HS #0 03/06/18 Atorvastatin Calcium [Lipitor 20 20 mg PO DAILY #0 03/22/18 mg (*)] Carvedilol [Coreg (*)] 12.5 mg PO BID #0 03/22/18 Linagliptin [Tradjenta] 5 mg PO DAILY #0 03/22/18 Cyanocobalamin [Vitamin B12 (*)] 1,000 mcg PO Q3D 03/26/18 Hydrocodone/Acetaminophen [[place] 1 - 2 tab PO Q4-6PRN PRN 03/26/18 5/325 (*)] Ibuprofen [Motrin (*)] 200 - 800 mg PO TID PRN 03/26/18 Omeprazole 20 mg PO HS 03/26/18 Lisinopril [Zestril 10 mg (*)] 25 mg PO DAILY 03/30/18 Rocephin 1 Gm Iv Q Day 04/05/18 Medical Decision Making - Diagnostics Imaging Results: CT cervical and thoracic spine without contrast demonstrates no acute fracture, possible ankylosing spondylitis seen in thoracic scan, interpreted by direct Radiology. Differential Diagnosis: 58-year-old male with hypertension, diabetes, asthma presents after a fall on the ice which occurred at about 5:30 p.m. Tonight. No loss of consciousness, no current headache, vomiting, behavioral change, neurologic deficit. Thus, will not perform CT scan of head. He does have tenderness of his cervical and upper thoracic spine at the midline and hears a clicking sensation each time he flexes his neck. He reports paresthesias of his left anterior shoulder, however on exam, sensation is intact to light touch in his strength is 5/[address] for [address] scan of his cervical and thoracic spine given midline tenderness. Pain control. Differential diagnosis includes vertebral fracture, ligamentous injury, muscle strain. Patient received ibuprofen and Tylenol with much improvement in his symptoms. CT scans performed showing no acute fracture. He denies any paresthesias currently. He feels well enough to go home. I have instructed him to follow up with his primary care doctor if his symptoms continue or if he develops any paresthesias or weakness. He is able to follow through with this plan. - Data Points Medications Given: Discontinued Medications Acetaminophen (Tylenol) 1,000 mg PO EDNOW ONE Stop: 01/06/19 23:11 Last Admin: 01/06/19 23:38 Dose: 1,000 mg Ibuprofen (Motrin) 400 mg PO EDNOW ONE Stop: 01/06/19 23:11 Last Admin: 01/06/19 23:38 Dose: 400 mg Departure - Departure Disposition: Home, Routine, Self-Care Clinical Impression: Fall due to ice or snow, Strain of neck muscle Condition: Good Instructions: Cervical Sprain (ED), Fall Prevention (ED) Additional Instructions: It is okay to take ibuprofen 400 mg or acetaminophen 650 mg every 6 hr as needed for pain. If you have ongoing symptoms, you can follow up with your primary care doctor for further testing. I have also given you information for the specialist, the neurosurgeon if needed. Referrals: Caitlin Dickey MD [Primary Care Provider] - As per Instructions Stephane Daniels MD [Medical Doctor] - As per Instructions
[2019-01-07 00:49] VITALS: BP 101/69
== END 2019-01-07 00:50 | disposition home or self-care (01) ==
DX: S16.1XXA Strain of muscle, fascia and tendon at neck level, initial encounter (principal); S09.90XA Unspecified injury of head, initial encounter; I10 Essential (primary) hypertension; E11.9 Type 2 diabetes mellitus without complications; J45.909 Unspecified asthma, uncomplicated; W00.0XXA Fall on same level due to ice and snow, initial encounter; Y92.9 Unspecified place or not applicable; Y99.9 Unspecified external cause status; Y93.9 Activity, unspecified; Z88.0 Allergy status to penicillin; Z88.2 Allergy status to sulfonamides; Z87.891 Personal history of nicotine dependence

== ENCOUNTER → 2019-01-21 | Outpatient (CLI) | payer MEDICAID | LOC: FIMAGING 14:55 | PROVIDERS: ATTEND Family Medicine | DX: R51 Headache (principal); H53.2 Diplopia; S06.0X0S Concussion without loss of consciousness, sequela ==

== ENCOUNTER → 2019-03-01 | Outpatient (CLI) | payer MEDICAID | LOC: FIMAGING 15:27 | PROVIDERS: ATTEND Family Medicine | DX: R05 Cough (principal); J45.30 Mild persistent asthma, uncomplicated; I10 Essential (primary) hypertension ==

== ENCOUNTER → 2019-03-05 | Outpatient (CLI) | payer MEDICAID | LOC: FIMAGING 12:21 | PROVIDERS: ATTEND Family Medicine | DX: M19.011 Primary osteoarthritis, right shoulder (principal) ==

== ENCOUNTER → 2019-04-29 | Outpatient (CLI) | payer MEDICAID | LOC: FIMAGING 19:54 ==